=== PATIENT | female | born 1945 ===

== ENCOUNTER 2017-11-03 12:54 | Outpatient (CLI) | payer OTHER ==
[~2017-11-03] VITALS: Ht 162.6 cm; Wt 68.0 kg
== END 2017-11-03 13:15 | disposition home or self-care (01) ==
LOC: OFIC 805 12:54
DX: R05 Cough (principal); R09.81 Nasal congestion; R68.89 Other general symptoms and signs

== ENCOUNTER 2017-12-15 13:13 | Outpatient (CLI) | payer OTHER ==
[~2017-12-15] VITALS: Ht 152.4 cm; Wt 68.0 kg
== END 2017-12-15 13:30 | disposition home or self-care (01) ==
LOC: OFIC 805 13:13
DX: J31.0 Chronic rhinitis (principal); R09.81 Nasal congestion; R05 Cough

== ENCOUNTER 2018-02-05 15:12 | Outpatient (CLI) | payer OTHER ==
[~2018-02-05] VITALS: Ht 152.4 cm; Wt 68.0 kg
== END 2018-02-05 15:35 | disposition home or self-care (01) ==
LOC: OFIC 805 15:12
DX: H90.3 Sensorineural hearing loss, bilateral (principal); R42 Dizziness and giddiness